=== PATIENT | male | born 1985 | race African-American/Black ===

== ENCOUNTER 2024-01-08 13:28 | Emergency (ER) | payer SELFPAY ==
[2024-01-08] MEDS: Lidocaine 2% Viscous Solution 15 ML UD PO ONE (14:02)
[2024-01-08] MEDS: Benzocaine 20% Topical Spray UD MUCMEM ONE (14:02)
== END 2024-01-08 14:06 | disposition home or self-care (01) ==
LOC: MW.ED 13:28
DX: K08.89 Other specified disorders of teeth and supporting structures (principal); E66.9 Obesity, unspecified; Z75.8 Other problems related to medical facilities and other health care
CPT/HCPCS: 99282; A9270